=== PATIENT | male | born 1945 | race Caucasian/White ===

== ENCOUNTER → 2017-08-07 07:44 | Outpatient (CLI) | payer OTHER ==
[~2017-08-07] VITALS: Ht 180.3 cm; Wt 81.8 kg
--- NOTE | ~2017-08-07 | HEMODYNAMI ---
PATIENT:MISSAEL MANRIQUEZ MEDICAL RECORD: [id number] : 49 LOCATION:[place] ADMISSION DATE: 08/07/17 Generatedon:08/07/201710:26 Patient name: MISSAEL MANRIQUEZ Patient #: [id number] SSN: : 1945 Date of study: 08/07/2017 Page: Of Hemodynamic Procedure Report Patient Data Patient Demographics Procedure consent was obtained First Name: MISSAEL Gender: Male Last Name: MITRA : 1945 Middle Initial: A Age: 72 year(s) Patient #: [id number] Race: Unknown Additional ID: [id number] Contact details Address: [address] [place] [address] [place]: [place] [facility] Zip code: [address] Admission Admission Data Admission Date: 08/07/2017 Admission Time: 7:44 Procedure Procedure Types Cath Procedure Diagnostic Procedure LHC LHC w/Coronaries Sedation Charges Moderate Sedation up to 15 minutes PCI Procedure Coronary Stent Coronary Stent Initial x2 Procedure Description Procedure Date Procedure Date: 08/07/2017 Procedure Start Time: 10:08 Procedure End Time: 10:25 Procedure Staff Name Function Braden Casarez MD Performing Physician Devonte Martinez RT Monitor Mckay Tyler RN Nurse Savana Johnson RT Scrub Procedure Data Cath Procedure Fluoroscopy Diagnostic fluoroscopy Total fluoroscopy Time: 4.5 time: 4.5 min min Diagnostic fluoroscopy Total fluoroscopy dose: 218 dose: 218 mGy mGy Contrast Material Contrast Material Type Amount (ml) Isovue 300 95 Entry Location Entry Primary Successful Side Size Upsize Upsize Entry Closure Sheridan ccessful Closure Location (Fr) 1 (Fr) 2 (Fr) Remarks Device Remarks Radial Right 6 Fr Mechanical artery Short Compression Estimated blood loss: 10 ml Diagnostic catheters Device Type Used For End Catheter Placement DIAGNOSTIC Madison 110cm 5 Procedure Fr catheter ([id number]) Procedure Complications No complications Procedure Medications Medication Administration Route Dosage Oxygen NC 2 l/min Heparin Flush Bag added to field 2 bags (1000units/500ml NS) 0.9% NaCl I.V. 100 ml/hr Radial Cocktail added to field 1 syringe (Verapomil 2mg/Nitro 400mcg/Heparin 1500units) Fentanyl I.V. 50 mcg Versed I.V. 1 mg Fentanyl I.V. 50 mcg Versed I.V. 1 mg Radial Cocktail I.A. 1 syringe (Verapomil 2mg/Nitro 400mcg/Heparin 1500units) Heparin Bolus I.V. 4000 units Hemodynamics Rest Heart Rate: 62 (bpm) Snapshots Pre Cath Intra NCS Post Cath Vital Signs Time Heart Resp SPO2 etCO2 NIBP (mmHg) Rhythm Pain Sedation Rate (ipm) (%) (mmHg) Status Level (bpm) 9:57:05 61 16 97 0 147/82(106) NSR 0 (11) 10(A) , No pain 10:01:36 60 17 98 38.7 132/82(121) NSR 0 (11) 10(A) , No pain 10:06:02 60 17 97 46.2 127/69(103) NSR 0 (11) 9(A) , No pain 10:10:28 82 16 97 42.5 129/61(92) NSR 0 (11) 9(A) , No pain 10:14:50 66 17 93 39.5 139/76(88) NSR 0 (11) 9(A) , No pain 10:19:15 69 16 95 41 125/68(111) NSR 0 (11) 9(A) , No pain 10:22:11 65 16 95 38 131/73(119) NSR 0 (11) 9(A) , No pain Medications Time Medication Route Dose Verified Delivered Reason Note s Effectiveness by by 9:56:00 Oxygen NC 2 l/min Braden Bashir Per physician Hermelindo Tyler RN 9:56:10 Heparin Flush added 2 bags Braden Bashir used for Bag to Hermelindo Tyler RN procedure (1000units/500ml field NS) 9:56:23 0.9% NaCl I.V. 100 Braden Bashir Per physician ml/hr Hermelindo yTler RN 9:56:34 Radial Cocktail added 1 Braden Bashir used for (Verapomil to syringe Hermelindo Tyler RN procedure 2mg/Nitro field 400mcg/Heparin 1500units) 10:03:39 Fentanyl I.V. 50 mcg Braedn Bashir for sedation Hermelindo Tyler RN 10:03:46 Versed I.V. 1 mg Braden Bashir for sedation Hermelindo Tyler RN 10:07:51 Fentanyl I.V. 50 mcg Braden Bashir for sedation Hermelindo Tyler RN 10:07:57 Versed I.V. 1 mg Braden Bashir for sedation Hermelindo Tyler RN 10:09:11 Radial Cocktail I.A. 1 Braden Bashir for (Verapomil syringe Hermelindo Tyler RN vasodilation 2mg/Nitro 400mcg/Heparin 1500units) 10:13:35 Heparin Bolus I.V. 4000 Braden Bashir for units Hermelindo Tyler RN anticoagulation Procedure Log Time Note 9:30:24 Devonte Martinez RT(R) sent for patient. Start room use. 9:37:25 Time tracking: Regular hours 9:37:30 Plan of Care:Hemodynamics will remain stable., Cardiac rhythm will remain stable., Comfort level will be maintained., Respiratory function will remain adequate., Patient/ family verbilizes understanding of procedure., Procedure tolerated without complication., Recovers from procedure without complications.. 9:49:14 Patient received from Pre/Post Procedure Room to [facility] 3 Alert and oriented. Tansferred to table in Supine position. 9:49:15 Warm blankets applied, and char hugger turned on for patient comfort. 9:49:15 Correct patient and procedure confirmed by team. 9:49:16 Signed procedure consent form obtained from patient. 9:49:17 ECG and BP/O2 sat monitors applied to patient. 9:49:18 Full Disclosure recording started 9:55:40 Vital chart was started 9:56:00 Oxygen 2 l/min NC was administered by Mckay Tyler RN; Per physician; 9:56:10 Heparin Flush Bag (1000units/500ml NS) 2 bags added to field was administered by Mckay Tyler RN; used for procedure; 9:56:23 0.9% NaCl 100 ml/hr I.V. was administered by Mckay Tyler RN; Per physician; 9:56:34 Radial Cocktail (Verapomil 2mg/Nitro 400mcg/Heparin 1500units) 1 syringe added to field was administered by Mckay Tyler RN; used for procedure; 9:59:06 Baseline sample Acquired. 9:59:22 Rhythm: sinus rhythm 9:59:43 H&P Date Dictated: 07/14/2017 Within 30 days and on chart., H&P Addendum completed by physician on day of procedure. (MUST COMPLETE FOR ALL OUTPATIENTS). 9:59:44 Pre-procedure instructions explained to patient. 9:59:44 Pre-op teaching completed and patient verbalized understanding. 9:59:47 Family in patients room. 9:59:48 Patient NPO since Midnight. 9:59:50 Is the patient allergic to Iodine/contrast media? No. 9:59:51 Is patient on blood thinner?Yes 9:59:53 ACC The patient was administered the following blood thiners within the last 24 hours: ACCPlavix 9:59:54 Patient diabetic? No. 9:59:56 Previous problem with sedation/anesthesia? No ? 9:59:57 Snore? Yes 9:59:58 Sleep apnea? Yes 9:59:59 Deviated septum? No 10:00:00 Opens mouth fully? Yes 10:00:01 Sticks out tongue? Yes 10:00:10 Dentures? No ? 10:00:11 Airway obstruction? No ? 10:00:13 Pre procedure: right dorsailis pedis pulse 1+ Palpable, but thready & weak; easily obliterated 10:00:15 Modified Bobby's test Ulnar < 7 seconds 10:00:18 Patient pain scale 0/10 ?. 10:02:04 IV patent on arrival in left forearm with 0.9% NaCl at KVO. 10:02:07 Lab results completed and on chart. 10:02:09 Right Radial & Right Groin area was prepped with chlora-prep and draped in sterile fashion 10:02:10 Alarms reviewed by R. N. 10:02:11 Sharps counted by scrub and verified by R.N. 10:03:16 --------ALL STOP TIME OUT------ 10:03:16 Final Timeout: patient, procedure, and site verified with staff and physician. All members of the team are in agreement. 10:03:18 Right Radial & Right Groin site verified by team. 10:03:21 Physical assessment completed. ASA score P 2 - A patient with mild systemic disease as per Braden Tauth MD. 10:03:27 Sedation plan: IV Moderate Sedation Medication:Versed, Fentanyl 10:03:39 Fentanyl 50 mcg I.V. was administered by Mckay Tyler RN; for sedation; 10:03:46 Versed 1 mg I.V. was administered by Mckay Tyler RN; for sedation; 10:06:44 Use device set Radial Dx or PCI 10:06:46 Tegaderm 4 x 4 (1626W) opened to sterile field. 10:06:47 ACIST Manifold (62735) opened to sterile field. 10:06:47 ACIST Hand Control (88419) opened to sterile field. 10:06:49 ACIST Syringe (51299) opened to sterile field. 10:06:49 Medline Cath Pack ([id number]) opened to sterile field. 10:06:51 Bag Decanter (2002S) opened to sterile field. 10:06:53 MBrace Wrist Support ([id number]) opened to sterile field. 10:06:55 SHEATH 6FR Slender ([id number]) opened to sterile field. 10:06:55 DIAGNOSTIC WIRE .035 260cm J wire (598392) opened to sterile field. 10:07:13 Zero performed for pressure channel P1 10:07:51 Fentanyl 50 mcg I.V. was administered by Mckay Tyler RN; for sedation; 10:07:57 Versed 1 mg I.V. was administered by Mckay Tyler RN; for sedation; 10:08:08 Procedure started. 10:08:12 Local anesthetic to right radial artery with Lidocaine 2% by Braden Casarez MD.INITIAL ACCESS ONLY 10:09:00 A 6 Fr Short sheath was inserted into the Right Radial artery 10:09:11 Radial Cocktail (Verapomil 2mg/Nitro 400mcg/Heparin 1500units) 1 syringe I.A. was administered by Mckay Tyler RN; for vasodilation; 10:10:02 A DIAGNOSTIC [place] 110cm 5 Fr catheter (389649) was advanced over the wire and used for Procedure. 10:10:21 LV angiography performed. 10:10:23 LV gram done using LARSON 10:10:32 EF : 60 % 10:10:36 Injector settings: Ml/sec: 7, Volume: 15, 10:10:55 LCA angiography performed. 10:10:58 Use device set TAUTH PCI 10:11:05 INFLATOR Merit BasixCompak (WW9065) opened to sterile field. 10:11:08 CHOICE PT Extra Support 182cm wire ([id number]) opened to sterile field. 10:12:17 RCA angiography performed. 10:12:19 Catheter exchanged over wire. 10:13:04 GUIDE 6FR XBLAD 3.5 catheter ([id number]) opened to sterile field. 10:13:20 6 Fr XBLAD 3.5 guide catheter was inserted over the wire 10:13:29 Study PCI Site: [place] mCirc has 90% stenosis. 10:13:31 ACC Pre-intervention JUDSON Flow is 3. 10:13:35 Heparin Bolus 4000 units I.V. was administered by Mckay Tyler RN; for anticoagulation; 10:13:38 Choice PT XS wire advanced. 10:14:59 Wire advanced across lesion. 10:15:40 Inflation Number: 1 A BLAINE RX 2.5 x 22 stent ([id number]) was prepped and advanced across the Mid CX. The stent was deployed at 15 KILLIAN for 0:10 (min:sec). 10:16:00 Wire redirected to LAD. 10:17:34 Stent catheter was removed intact over wire. 10:18:16 Study PCI Site: [place] mLAD has 80% stenosis. 10:18:19 ACC Pre-intervention JUDSON Flow is 3. 10:18:48 Wire advanced across lesion. 10:18:55 Inflation Number: 1 A BLAINE RX 2.5 x 12 stent ([id number]) was prepped and advanced across the Mid LAD. The stent was deployed at 17 KILLIAN for 0:10 (min:sec). 10:19:09 TR BAND Standard ([id number]) opened to sterile field. 10:19:22 Stent catheter was removed intact over wire. 10:19:22 Wire removed. 10:19:23 Guide catheter removed. 10:19:32 Sheath removed intact; hemostasis achieved with Mechanical Compression to the Right Radial artery. 10:19:35 Procedure ended.(Physican Out) 10:21:39 Fluoroscopy time 04.50 minutes. 10:21:46 Fluoroscopy dose: 218 mGy 10:21:46 Flurop Dose total: 218 10:21:57 Contrast amount:Isovue 300 95ml. 10:21:58 Sharps counted by scrub and verified by R.N. 10:22:03 TR band inflated with 12cc of air. 10:22:04 Insertion/operative site no bleeding no hematoma. 10:22:06 Post Procedure Pulses reassessed and unchanged 10:22:09 Post-procedure physical assessment completed. ASA score P 2 - A patient with mild systemic disease as per Braden Casarez MD. 10:22:11 Post procedure rhythm: unchanged. 10:22:14 Estimated blood loss: 10 ml 10:22:16 Post procedure instruction explained to patient.Patient verbalizes understanding. 10:22:16 Patient needs reinforcement of post procedure teaching. 10:22:31 Procedure type changed to Cath procedure, Diagnostic procedure, LHC, LHC w/Coronaries, Sedation Charges, Moderate Sedation up to 15 minutes, PCI procedure, Coronary Stent, Coronary Stent Initial x2 10:22:34 Procedure Complication : No complications 10:23:01 Procedure and supply charges have been captured, reviewed, submitted and are correct. 10:25:22 Vital chart was stopped 10:25:23 See physician's report for complete and final results. 10:25:25 Report given to Pre/Post Procedure Room. 10:25:27 Patient transfered to Pre/Post Procedure Room with Stretcher. 10:25:30 Procedure ended. 10:25:30 Full Disclosure recording stopped 10:25:35 End room use (Document Last) Intervention Summary Intervention Notes Time ActionType Lesion and Equipment Used Action# Pressure Duration Attributes 10:15:40 Place stent Mid CX BLAINE RX 2.5 x 1 15 00:10 22 stent ([id number]) 10:18:55 Place stent Mid LAD BLAINE RX 2.5 x 1 17 00:10 12 stent ([id number]) Device Usage Item Name Manufacture Quantity Catalog Number Hospital Part Current M inimal Lot# / Charge Number Stock Stock Serial# Code Tegaderm 4 x 4 3M 1 1626W [id number] 012945 [id number] 5 (1626W) ACIST Manifold Acist 1 18609 671889 092854 997694 5 (26393) [employer] ACIST Hand Acist 1 59212 310649 991473 751756 5 Control Medical (85987) Systems Inc ACIST Syringe Acist 1 08833 221190 931725 011221 2 0 (53901) Medical Systems Inc Medline Cath Cardinal 1 [id number] 604404 74246 287194 5 Pack Health ([id number]) Bag Decanter Microtek 1 2001S 168310 39478 878321 5 () Medical Inc. MBrace Wrist Advanced 1 140-0250-00 551559 37692 050977 5 Support Vascular ([id number]) Dynamics SHEATH 6FR Terumo 1 [id number] 150726 029614 770534 4 0 Slender ([id number]) DIAGNOSTIC St Chao 1 052560 279593 945534 361686 3 0 WIRE .035 260cm J wire (734436) DIAGNOSTIC Terumo 1 40-1495 858368 493810 898486 5 [place] 110cm 5 Fr catheter (292756) INFLATOR Merit Merit 1 UD3442 538738 289512 636114 1 5 [employer] (PK1538) CHOICE PT [place] 1 [id number] 282973 670568 643869 5 Extra Support Scientific 182cm wire ([id number]) GUIDE 6FR Cardinal 1 [id number] 006288 330209 885901 1 0 XBLAD 3.5 Health catheter (22409344) BLAINE RX 2.5 x Medtronic 1 [id number] 304436 1188867 390810 5 [id number] 22 stent ([id number]) BLAINE RX 2.5 x Medtronic 1 [id number] 276930 3881794 540593 5 [id number] 12 stent ([id number]) TR BAND Terumo 1 [id number] 510510 721953 030925 4 0 Standard ([id number]) Signature Audit [place] Stage Time Signature Unsigned Intra-Procedure 08/07/2017 Devonte Martinez 10:25:49 AM RT(R) Signatures Monitor : Devonte Martinez RT Signature : Date : Time : [facility] [address] [place] [address]
--- NOTE | ~2017-08-07 | OP ---
PATIENT NAME: MISSAEL MANRIQUEZ MEDICAL RECORD: [id number] :49 LOCATION:[facility] ADMISSION DATE: SURGEON: SISSY BLISS MD DATE OF OPERATION: 08/07/2017 PROCEDURES: 1. PTCA stent LAD. 2. PTCA stent left circumflex. 3. Left heart catheterization. 4. Selective coronary angiography. 5. Left ventriculogram. INDICATION: Angina and coronary artery disease. PROCEDURE IN DETAIL: After informed consent was obtained and after detailed explanation of risks, benefits as well as alternative therapies, the patient elected to proceed with angiogram and angioplasty. The right radial area was prepped and draped in normal sterile fashion. Right radial artery was cannulated via modified Seldinger technique with placement of 6-Bahraini sheath. All catheters were exchanged through this sheath. FINDINGS: Left ventriculogram was performed in standard 30-degree LARSON view, reveals good cardiac wall motion throughout all segments. Overall ejection fraction estimated at 60%. SELECTIVE CORONARY ANGIOGRAPHY: 1. Left main showed no significant angiographic disease. 2. Left anterior descending has 80+ percent stenosis in the mid vessel. 3. The left circumflex has 90% stenosis mid vessel. 4. The right coronary artery has an 80% stenosis in mid distal vessel. PTCA STENT OF THE LAD: The stent used was 2.5 x 12 mm Charlie. Result was 0% residual stenosis. PTCA STENT OF THE LEFT CIRCUMFLEX: The stent used was a 2.5 x 22 mm [place]. Result was 0% residual stenosis. OVERALL IMPRESSION: Successful percutaneous transluminal coronary angioplasty stent of the left anterior descending and circumflex, both going from 80% to 90% initial stenosis to 0% residual stenosis. PLAN: PTCA stent of the RCA in the near future. TRANSINT:[id number] Voice Confirmation ID: [id number] DOCUMENT ID: [id number] SISSY BLISS MD at 1202 CC: [id number] DICTATION DATE: 08/07/17 1023 CHIEF NURSE: 08/07/17 1042 DEP CLI 08/07/17 [facility] [address] [place] [address]
[~2017-08-07 07:44] MED LIST: BAYER CHEWABLE81 MG PO; PAXIL10 MG PO; PLAVIX75 MG PO
[2017-08-07 08:27] VITALS: BP 156/75; Ht 180.3 cm; Wt 81.8 kg
[2017-08-07 08:32] LABS: HEMATOCRIT 44.5 % (42.0-54.0); HEMOGLOBIN 15.1 g/dL (13.5-17.5); MCH 31.5 pg (26.0-34.0); MCHC 33.9 g/dL (31.0-37.0); MCV 92.7 fL (80.0-100.0); MEAN PLATELET VOLUME 10.5 fL (7.4-10.4); PLATELET COUNT 141 10x3/uL (130-400); RDW 13.4 % (11.5-14.5); WBC 5.5 10x3/uL (4.8-10.8)
[2017-08-07 08:48] LABS: CALC OSMOLALITY 272 mosm/kg (275-300); CALCIUM 8.9 mg/dL (8.5-10.1); CARBON DIOXIDE 27.2 mmol/L (21.0-32.0); CHLORIDE - SERUM 102 mmol/L (98-107); CREATININE - SERUM 0.9 mg/dL (0.6-1.3); GLUCOSE 98 mg/dL (74-106); POTASSIUM - SERUM 4.2 mmol/L (3.5-5.1); SODIUM 136 mmol/L (136-145); UREA NITROGEN 16 mg/dL (7-18); eGFR NON AFRICAN AMERICAN 89 mL/min (90-120)
[2017-08-07 10:02] LABS: BASOPHILS 1 % (0-2); EOSINOPHILS 2 % (0-7); LYMPHOCYTES 57 % (15-50); MONOCYTES 11 % (2-11); NEUTROPHILS 26 % (40-80); PLATELET ESTIMATE NORMAL
== END | disposition home or self-care (01) ==
LOC: D.CATH 07:44
PROVIDERS: Internal Medicine Interventional Cardiology
DX: I25.119 Atherosclerotic heart disease of native coronary artery with unspecified angina pectoris (principal); Z01.812 Encounter for preprocedural laboratory examination
CPT/HCPCS: 93458; C9600 ×2

== ENCOUNTER → 2017-08-10 07:21 | Outpatient (CLI) | payer OTHER ==
[~2017-08-10] VITALS: Ht 180.3 cm; Wt 81.8 kg
--- NOTE | ~2017-08-10 | HP ---
PATIENT: MISSAEL MANRIQUEZ MEDICAL RECORD: [id number] ACCOUNT: [id number] LOCATION:[place] : 49 ADMISSION DATE: 08/10/17 HISTORY AND PHYSICAL EXAMINATION ADMITTING DIAGNOSES: 1. Angina. 2. Coronary artery disease. 3. Recent percutaneous transluminal coronary angioplasty stent left anterior descending and circumflex with concomitant disease, right coronary artery. 4. Hypertension. 5. Hyperlipidemia. HISTORY OF PRESENT ILLNESS: Mr. Manriquez presents with unstable angina, found to have 3-vessel coronary artery disease, underwent successful PTCA stent of the LAD and left circumflex, now brought back for PTCA stent of the RCA. PHYSICAL EXAMINATION: GENERAL APPEARANCE: Well-nourished, well-developed, appears stated age. Level of distress, comfortable. PSYCHIATRIC: Mental status, alert, normal affect. Orientation, oriented to time, place and person. EYES: Lids and conjunctiva, noninjected. No discharge, no pallor. ENT: Lips, teeth, gums, normal dentition. Oropharynx, no cyanosis, no pallor. NECK: Carotid arteries, bilateral normal upstroke, no bruits, no thrills. JUGULAR VEINS: No jugular venous pressure or distention. CERVICAL LYMPH NODES: Nontender, nonenlarged. THYROID: Not enlarged. Nontender. No nodules. LUNGS: Respiratory effort, unlabored. CHEST: Normal curvature. No thoracic deformity. No chest wall tenderness. Percussion, resonant. Auscultation, clear. No wheezes, no rales, no rhonchi. CARDIOVASCULAR: Precordial exam, nondisplaced. No heaves or pericardial thrills. Rate and rhythm, regular. Heart sounds, normal S1, normal S2. No S3, no gallop, no rub. Systolic murmur, not heard. Diastolic murmur, not heard. EXTREMITIES: No cyanosis, no edema. Peripheral pulses, full and equal in all extremities, except as noted. No bruits appreciated. ABDOMEN: Soft, nondistended. Normal aorta. No bruit. Nontender. No masses. Liver, nontender, no hepatomegaly. Spleen, nontender, no splenomegaly. MUSCULOSKELETAL: No joint tenderness. No joint swelling. No erythema. NEUROLOGICAL: Normal gait, normal strength, normal tone. SKIN: Warm and dry. OVERALL IMPRESSION: Angina with significant disease of the right coronary artery. We will proceed with transcatheter revascularization of the right coronary artery. TRANSINT:[id number] Voice Confirmation ID: [id number] DOCUMENT ID: [id number] HISTORY AND PHYSICAL [id number] MISSAEL MANRIQUEZ JEFFREY MD at 1202 CC: [id number] DICTATION DATE: 08/10/17 1059 TICKET MAKER: 08/10/17 1125 [address] [place] [id number] [place] [id number]
--- NOTE | ~2017-08-10 | OP ---
PATIENT NAME: MISSAEL MANRIQUEZ MEDICAL RECORD: [id number] :49 LOCATION:D.CAT ADMISSION DATE: SURGEON: SISSY BLISS MD DATE OF OPERATION: 08/10/2017 PROCEDURES: 1. Diamondback atherectomy RCA. 2. PTCA stent RCA. 3. Selective coronary angiography. INDICATION: Angina and coronary artery disease. PROCEDURE IN DETAIL: After informed consent was obtained and after detailed explanation of risks, benefits as well as alternative therapies, the patient elected to proceed with angiogram and angioplasty. The right femoral area was prepped and draped in normal sterile fashion. The right femoral vein cannulated via modified Seldinger technique with placement of a 7-Mauritanian sheath. Right femoral artery was cannulated via modified Seldinger technique with placement of a 7-[place]auritanian sheath. All catheters exchanged through this sheath. At the end of the case, all catheters removed, sheaths also removed. Hemostasis was obtained via ExoSeal and direct compression. He tolerated the procedure well, no complications, and returned back to the room in stable hemodynamic condition. FINDINGS: The right coronary artery has heavy calcified areas of 80% stenosis in the mid distal portion of the vessel. This was approached with a Diamondback atherectomy followed by 3.0 x 26 mm [place] stent. Result was 0% residual stenosis. OVERALL IMPRESSION: Successful percutaneous transluminal coronary angioplasty stent of the right coronary artery going from multiple areas of 80% initial stenosis to 0% residual. TRANSINT:[id number] Voice Confirmation ID: [id number] DOCUMENT ID: [id number] SISSY BLISS MD at 1140 CC: [id number] DICTATION DATE: 08/10/17 1101 FLOORWALKER: 08/10/17 1246 DEP CLI 08/10/17 [place] [id number] [place] [id number]
--- NOTE | ~2017-08-10 | HEMODYNAMI ---
PATIENT:MISSAEL MANRIQUEZ MEDICAL RECORD: [id number] : 49 LOCATION:[facility] ADMISSION DATE: 08/10/17 Generatedon:08/10/201711:11 Patient name: MISSAEL MANRIQUEZ Patient #: [id number] SSN: : 1945 Date of study: 08/10/2017 Page: Of Hemodynamic Procedure Report Patient Data Patient Demographics Procedure consent was obtained First Name: MISSAEL Gender: Male Last Name: MITRA : 1945 Middle Initial: A Age: 72 year(s) Patient #: [id number] Race: Additional ID: [id number] Contact details [address]: [address] [place] [address] [place] [facility] [place] [facility] Zip code: [address] Past Medical History Allergies Allergen Reaction Date Comments Reported Other allergy 08/10/2017 Sulfa Admission Admission Data Admission Date: 08/10/2017 Admission Time: 7:21 Lab Results Lab Result Date: 08/10/2017 Lab Result Time: 8:00 Biochemistry Name Units Result Min Max BUN mg/dl 14 --(--*-)-- 7 18 Creatinine mg/dl 0.9 --(-*--)-- 0.6 1.3 CBC Name Units Result Min Max Hematocrit % 45.2 --(-*--)-- 42 54 Hemoglobin g/dl 15.5 --(-*--)-- 13.5 17.5 Procedure Procedure Types Cath Procedure Diagnostic Procedure Sedation Charges Moderate Sedation up to 30 minutes PCI Procedure Coronary Atherectomy Atherectomy w/Stent Coronary Initial Procedure Description Procedure Date Procedure Date: 08/10/2017 Procedure Start Time: 10:36 Procedure End Time: 11:09 Procedure Staff Name Function Braden Casarez MD Performing Physician Mckay Tyler RN Nurse Devonte Martinez RT Scrub Nicholas Antonio RT Monitor Procedure Data Cath Procedure Fluoroscopy Diagnostic fluoroscopy Total fluoroscopy Time: 6.7 time: 6.7 min min Diagnostic fluoroscopy Total fluoroscopy dose: dose: 205.36 mGy 205.36 mGy Contrast Material Contrast Material Type Amount (ml) Isovue 300 52 Entry Location Entry Primary Successful Side Size Upsize Upsize Entry Closure Succes sful Closure Location (Fr) 1 (Fr) 2 (Fr) Remarks Device Remarks Femoral Right 7 Fr Exoseal vein Short Femoral Right 7 Fr Exoseal artery Short Estimated blood loss: 10 ml Procedure Complications No complications Procedure Medications Medication Administration Route Dosage Oxygen NC 2 l/min Heparin Flush Bag added to field 2 bags (1000units/500ml NS) 0.9% NaCl I.V. 100 ml/hr Fentanyl I.V. 50 mcg Versed I.V. 1 mg Fentanyl I.V. 50 mcg Versed I.V. 1 mg Heparin Bolus I.V. 4000 units unlisted medication added to field Fentanyl I.V. 50 mcg Fentanyl I.V. 50 mcg Hemodynamics Rest HGB: 15.5 (g/dl) Heart Rate: 63 (bpm) Snapshots Pre Cath Intra NCS Post Cath Vital Signs Time Heart Resp SPO2 etCO2 NIBP (mmHg) Rhythm Pain Sedation Rate (ipm) (%) (mmHg) Status Level (bpm) 10:15:29 60 17 97 0 137/77(93) NSR 0 (11) 10(A) , No pain 10:19:49 56 17 98 38.4 132/75(107) NSR 0 (11) 10(A) , No pain 10:24:09 57 16 95 27.3 125/69(80) NSR 0 (11) 9(A) , No pain 10:28:25 49 18 94 34.7 130/67(91) NSR 0 (11) 9(A) , No pain 10:32:31 55 17 94 35.4 112/69(98) NSR 0 (11) 9(A) , No pain 10:36:43 56 16 95 35.4 122/70(116) NSR 0 (11) 9(A) , No pain 10:40:57 58 16 99 38.4 107/67(105) NSR 0 (11) 9(A) , No pain 10:45:03 63 17 97 37.7 121/79(94) NSR 0 (11) 9(A) , No pain 10:49:19 68 16 98 37.7 125/69(115) NSR 0 (11) 9(A) , No pain 10:53:37 66 16 98 36.2 108/65(99) NSR 0 (11) 9(A) , No pain 10:57:47 67 16 97 36.9 122/70(103) NSR 0 (11) 10(A) , No pain 11:02:03 57 16 99 44.3 135/72(122) NSR 0 (11) 10(A) , No pain 11:06:21 58 0 100 42.1 146/74(98) NSR 0 (11) 10(A) , No pain Medications Time Medication Route Dose Verified Delivered Reason Notes Effectiveness by by 10:14:36 Oxygen NC 2 Braden Cortezy Per physician l/min Hermelindo Tyler RN 10:14:44 Heparin Flush added 2 Braden Mckay used for Bag to bags Hermelindo Tyler RN procedure (1000units/500ml field NS) 10:14:53 0.9% NaCl I.V. 100 Braden Mckay Per physician ml/hr Hermelindo Tyler RN 10:20:42 Fentanyl I.V. 50 Braden Mckay for sedation [facility] Hermelindo Tlyer RN 10:20:48 Versed I.V. 1 mg Braden Mckay for sedation Hermelindo Tyler RN 10:25:25 Fentanyl I.V. 50 Braden Mckay for sedation mcg Hermelindo Tyler RN 10:25:29 Versed I.V. 1 mg Braden Mckay for sedation Hermelindo Tyler RN 10:38:44 Fentanyl I.V. 50 Braden Mckay for sedation [facility] Hermelindo Tyler RN 10:45:19 Heparin Bolus I.V. 4000 Braden Mckay for units Hremelindo Tyler RN anticoagulation 10:49:00 NS 0.9% with added Bradenrich Cortezy Per physician 20mL viperslide to Hermelindo Tyler RN field 10:51:08 Fentanyl I.V. 50 Braden Mckay for sedation [facility] Hermelindo Tyler RN Procedure Log Time Note 8:51:20 Informed consent obtained and on chart 8:51:24 Diagnostic Cath Status : Elective 9:02:08 Time tracking: Regular hours 9:02:14 Plan of Care:Hemodynamics will remain stable., Cardiac rhythm will remain stable., Comfort level will be maintained., Respiratory function will remain adequate., Patient/ family verbilizes understanding of procedure., Procedure tolerated without complication., Recovers from procedure without complications.. 9:47:29 H&P Date Dictated: 08/10/2017 New H&P dictated by physician.. 9:48:28 Lab results completed and on chart. 9:48:54 Lab Result : BUN 14 mg/dl 9:48:54 Lab Result : Creatinine 0.9 mg/dl 9:48:54 Lab Result : Hemoglobin 15.5 g/dl 9:48:54 Lab Result : Hematocrit 45.2 % 9:50:23 Devonte Martinez RT(R) sent for patient. Start room use. 10:04:32 Patient received from Pre/Post Procedure Room to CCL 3 Alert and oriented. Tansferred to table in Supine position. 10:04:33 Warm blankets applied, and char hugger turned on for patient comfort. 10:04:33 Correct patient and procedure confirmed by team. 10:04:34 ECG and BP/O2 sat monitors applied to patient. 10:14:19 Vital chart was started 10:14:36 Oxygen 2 l/min NC was administered by Mckay Tyler RN; Per physician; 10:14:44 Heparin Flush Bag (1000units/500ml NS) 2 bags added to field was administered by Mckay Tyler RN; used for procedure; 10:14:53 0.9% NaCl 100 ml/hr I.V. was administered by Mckay Tyler RN; Per physician; 10:18:23 Baseline sample Acquired. 10:18:29 Rhythm: sinus rhythm 10:19:09 Baseline sample Acquired. 10:19:11 Pre-procedure instructions explained to patient. 10:19:11 Pre-op teaching completed and patient verbalized understanding. 10:19:17 Family in waiting room. 10:19:19 Patient NPO since Midnight. 10:19:26 Patient allergic to Other allergySulfa 10:19:28 Is the patient allergic to Iodine/contrast media? No. 10:19:28 Is patient on blood thinner?Yes 10:19:32 ACC The patient was administered the following blood thiners within the last 24 hours: ACCPlavix 10:19:33 Patient diabetic? No. 10:19:35 Previous problem with sedation/anesthesia? No ? 10:19:36 Snore? Yes 10:19:36 Sleep apnea? Yes 10:19:37 Deviated septum? No 10:19:38 Opens mouth fully? Yes 10:19:39 Sticks out tongue? Yes 10:19:40 Airway obstruction? No ? 10:19:42 Dentures? No ? 10:19:44 Modified Bobby's test Ulnar < 7 seconds 10:19:45 Patient pain scale 0/10 ?. 10:19:49 IV patent on arrival in left hand with 0.9% NaCl at [facility]. 10:19:53 Right Radial & Right Groin area was prepped with chlora-prep and draped in sterile fashion 10:19:54 Alarms reviewed by R. N. 10:19:54 Sharps counted by scrub and verified by R.N. 10:19:57 Use device set Radial Dx or PCI 10:20:00 ACIST Manifold (84219) opened to sterile field. 10:20:02 ACIST Syringe (91835) opened to sterile field. 10:20:02 Medline Cath Pack ([id number]) opened to sterile field. 10:20:03 Bag Decanter (2002S) opened to sterile field. 10:20:05 ACIST Hand Control (12258) opened to sterile field. 10:20:10 Tegaderm 4 x 4 (1626W) opened to sterile field. 10:20:11 MBrace Wrist Support ([id number]) opened to sterile field. 10:20:15 TR BAND Standard (OKK24KIS) opened to sterile field. 10:20:16 DIAGNOSTIC WIRE .035 260cm J wire (507886) opened to sterile field. 10:20:17 INFLATOR Merit BasixCompak (BM1410) opened to sterile field. 10:20:24 Physician arrived 10:20:24 --------ALL STOP TIME OUT------ 10:20:24 Final Timeout: patient, procedure, and site verified with staff and physician. All members of the team are in agreement. 10:20:26 Right Radial & Right Groin site verified by team. 10:20:28 Physical assessment completed. ASA score P 2 - A patient with mild systemic disease as per Braden Casarez MD. 10:20:31 Sedation plan: IV Moderate Sedation Medication:Versed, Fentanyl 10:20:42 Fentanyl 50 mcg I.V. was administered by Mckay Tyler RN; for sedation; 10::48 Versed 1 mg I.V. was administered by Mckay Tyler RN; for sedation; 10::41 Baseline sample Acquired. 10:24:58 Zero performed for pressure channel P1 10:25:01 Zero performed for pressure channel P1 10:25:06 Zero performed for pressure channel P1 10:25:10 Zero performed for pressure channel P1 10:25:15 Zero performed for pressure channel P1 10:25:25 Fentanyl 50 mcg I.V. was administered by Mckay Tyler RN; for sedation; 10::26 Zero performed for pressure channel P1 10:25:29 Versed 1 mg I.V. was administered by Mckay Tyler RN; for sedation; 10:36:24 SHEATH 7FR [place] (KYA615) opened to sterile field. 10:36:34 5Fr J Tip Temporary Pacing Catheter ([id number]) opened to sterile field. 10:36:46 Procedure started. 10:36:46 Full Disclosure recording started 10:36:49 Local anesthetic to right femoral artery with Lidocaine 2% by Braden Casarez MD.INITIAL ACCESS ONLY 10:37:03 A 7 Fr Short sheath was inserted into the Right Femoral vein 10:37:15 A 7 Fr Short sheath was inserted into the Right Femoral artery 10:38:44 Fentanyl 50 mcg I.V. was administered by Mckay Tyler RN; for sedation; 10:39:08 GUIDE 7FR AR 2.0 catheter (UW8WQ48) opened to sterile field. 10:39:45 Temporary pacer inserted 10:41:36 SHEATH 7FR [place] (VWI282) opened to sterile field. 10:41:56 Temporary pacer turned on with the following settings: Rate 40, MA 5, Sensitivity na. 10:42:08 Pacer set on demand 10:42:16 7 Fr AR 2 guide catheter was inserted over the wire 10:43:43 DIAMONDBACK Viperslide Lubricant (VPRSLD2) opened to sterile field. 10:43:44 DIAMONDBACK VIPER .014 335 CM wire ([id number]) opened to sterile field. 10:44:40 VIPER WIRE wire advanced. 10:44:55 Wire advanced across lesion. 10:45:19 Heparin Bolus 4000 units I.V. was administered by Mckay Tyler RN; for anticoagulation; 10:46:54 The DIAMONDBACK Coronary atherectomy catheter ([id number]) was advanced and then removed because 10:47:43 DIAMONDBACK Cornary atheretomy catheter advanced over wire. 10:48:38 Diamondback solution initiated IA via Diamondback device per MD: 0.9% NS 1000ml, Viperslide 20ml, Verapamil 5mg, Nitroglycerin 5mg. 10:49:00 NS 0.9% with 20mL viperslide added to field was administered by Mckay Tyler RN; Per physician; 10:50:10 Diamondback atherectomy performed on Mid/Distal RCA 10:51:08 Fentanyl 50 mcg I.V. was administered by Mckay Tyler RN; for sedation; 10:53:06 Diamondback catheter removed. 10:55:58 Inflation Number: 1 A BLAINE OTW 3.0 x 26 stent ([id number]) was prepped and advanced across the Mid RCA. The stent was deployed at 17 KILLIAN for 0:10 (min:sec). 10:56:35 Stent catheter was removed intact over wire. 10:56:35 Wire removed. 10:56:35 Guide catheter removed. 10:56:44 Temporary pacer turn off 10:56:45 Temporary pacer removed 10:56:57 EXOSEAL 7Fr (EX700) opened to sterile field. 10:57:03 EXOSEAL 7Fr (EX700) opened to sterile field. 10:57:14 Sheath removed intact; hemostasis achieved with Exoseal to the Right Femoral vein. 10:57:20 Sheath removed intact; hemostasis achieved with Exoseal to the Right Femoral artery. 10:57:22 Procedure ended.(Physican Out) 10:59:13 Fluoroscopy time 06.70 minutes. 10:59:38 Flurop Dose total: 205.36 10:59:38 Fluoroscopy dose: 205.36 mGy 10:59:43 Contrast amount:Isovue 300 52ml. 10:59:44 Sharps counted by scrub and verified by R.N. 10:59:46 Insertion/operative site no bleeding no hematoma. 10:59:49 Post-op/insertion site Right Femoral artery dressed using a 4 x 4 and Tegaderm. 10:59:51 Post-op/insertion site Right Femoral vein dressed using a 4 x 4 and Tegaderm. 10:59:58 Post right femoral artery:stable, soft, clean and dry 11:00:02 Post right femoral vein:stable, soft, clean and dry 11:00:03 Post Procedure Pulses reassessed and unchanged 11:00:05 Post-procedure physical assessment completed. ASA score P 2 - A patient with mild systemic disease as per Braden Casarez MD. 11:00:07 Post procedure rhythm: unchanged. 11:00:09 Estimated blood loss: 10 ml 11:00:10 Post procedure instruction explained to patient.Patient verbalizes understanding. 11:00:10 Patient needs reinforcement of post procedure teaching. 11:00:46 Procedure type changed to Cath procedure, Diagnostic procedure, Sedation Charges, Moderate Sedation up to 30 minutes, PCI procedure, Coronary Atherectomy, Atherectomy w/Stent Coronary Initial 11:09:26 Procedure and supply charges have been captured, reviewed, submitted and are correct. 11:09:32 Procedure Complication : No complications 11:09:34 Vital chart was stopped 11:09:34 See physician's report for complete and final results. 11:09:35 Report given to Pre/Post Procedure Room. 11:09:37 Patient transfered to Pre/Post Procedure Room with Stretcher. 11:09:41 Procedure ended. 11:09:41 Full Disclosure recording stopped 11:09:45 End room use (Document Last) Intervention Summary Intervention Notes Time ActionType Lesion and Equipment Action# Pressure Duration Attributes Used 10:46:54 Discard DIAMONDBACK Balloon Coronary atherectomy catheter (NJZG767) 10:55:58 Place stent Mid RCA BLAINE OTW 3.0 1 17 00:10 x 26 stent ([id number]) Device Usage Item Name Manufacture Quantity Catalog Hospital Part Current [facility] Lot# / Number Charge Number Stock Stock Serial# Code ACIST Acist Medical 1 47175 814268 820716 091714 5 Manifold Systems Inc (49568) ACIST Syringe Acist Medical 1 42980 624678 834646 770739 20 (97616) Systems Inc Medline Cath Cardinal 1 [id number] 202983 96304 262926 5 Proxim Wireless Health ([id number]) Bag Decanter Microtek 1 289154 47757 552586 5 () Medical Inc. ACIST Hand Acist Medical 1 56866 279766 404282 493580 5 Control Systems Inc (59577) Tegaderm 4 x 3M 1 1626W 424111 261706 274235 5 4 (1626W) MBrace Wrist Advanced 1 140-0250-00 722366 31072 350817 5 Support Vascular ([id number]) Dynamics TR BAND Terumo 1 [id number] 226542 854505 028099 40 Standard ([id number]) DIAGNOSTIC St Chao 1 058945 810499 774651 250821 30 WIRE .035 260cm J wire (055519) INFLATOR [employer] Medical 1 VG2605 092110 347417 104646 15 [employer] BasixCompak (ZW2342) SHEATH 7FR Terumo 2 JTI014 677444 129128 671793 5 [place] (QIR686) 5Fr J Tip Aleman 1 [id number] 205450 85543 581885 2 Temporary Lifesciences Pacing Catheter ([id number]) GUIDE 7FR AR Medtronic 1 AL0PN87 630638 468846 019144 0 2.0 catheter (SI9GK13) DIAMONDBACK Cardiovascular 1 VPR-SLD2 396211 481554 5 Viperslide systems Lubricant (VPRSLD2) DIAMONDBACK Cardiovascular 1 VPR-GW-FT14 097773 221582 5 VIPER .014 systems 335 CM wire ([id number]) DIAMONDBACK Cardiovascular 1 DBEC-125 960347 114817 951010 5 Coronary systems atherectomy catheter (YZVF089) BLAINE OTW 3.0 Medtronic 1 [id number] 827310 3513340 052848 5 [id number] x 26 stent ([id number]) EXOSEAL 7Fr Cardinal 2 EX700 112760 486751 010436 5 (EX700) Health Signature Audit Varna Stage Time Signature Unsigned Intra-Procedure 08/10/2017 Nicholas Antonio 11:11:13 AM RT(R) Signatures Monitor : Nicholas Antonio RT Signature : Date : Time : [facility] [address] [place] [address]
[2017-08-10 07:45] VITALS: BP 149/74; Ht 180.3 cm; Wt 81.8 kg
[2017-08-10 08:06] LABS: BASOPHILS 0.2 % (0-2); EOSINOPHILS 1.1 % (0-7); HEMATOCRIT 45.2 % (42.0-54.0); HEMOGLOBIN 15.5 g/dL (13.5-17.5); LYMPHOCYTES 45.3 % (15-50); MCH 31.9 pg (26.0-34.0); MCHC 34.3 g/dL (31.0-37.0); MEAN PLATELET VOLUME 10.6 fL (7.4-10.4); MONOCYTES 9.6 % (2-11); NEUTROPHILS 43.8 % (40-80); PLATELET COUNT 135 10x3/uL (130-400); RBC 4.86 10x6/uL (4.20-6.10); RDW 13.6 % (11.5-14.5); WBC 6.3 10x3/uL (4.8-10.8)
[2017-08-10 08:16] LABS: CALC OSMOLALITY 278 mosm/kg (275-300); CALCIUM 8.8 mg/dL (8.5-10.1); CARBON DIOXIDE 28.9 mmol/L (21.0-32.0); CHLORIDE - SERUM 103 mmol/L (98-107); CREATININE - SERUM 0.9 mg/dL (0.6-1.3); GLUCOSE 96 mg/dL (74-106); SODIUM 139 mmol/L (136-145); UREA NITROGEN 14 mg/dL (7-18); eGFR NON AFRICAN AMERICAN 89 mL/min (90-120)
== END | disposition home or self-care (01) ==
LOC: D.CATH 07:21
PROVIDERS: Internal Medicine Interventional Cardiology
DX: I25.119 Atherosclerotic heart disease of native coronary artery with unspecified angina pectoris (principal); I10 Essential (primary) hypertension; E78.5 Hyperlipidemia, unspecified; Z01.812 Encounter for preprocedural laboratory examination